=== PATIENT | female | born 1940 | race Caucasian/White ===

== ENCOUNTER 2022-08-19 10:13 | Emergency (ER) | payer BC ==
[~2022-08-19] VITALS: Ht 167.6 cm; Wt 65.8 kg
--- NOTE | 2022-08-19 10:38 | NUR ---
PT MELISSA FROM [facility]. PMD SENT THE PATIENT FOR ABNORMAL HGB 7.6. PT C/O BUTTOCKS PAIN FROM BONE MARROW BIOPSY 2 DAYS AGO. PT IS TRANSFERRED TO BED AND CONNECTED TO MONITOR, VITAL SIGNS WNL. AOX4.
--- NOTE | 2022-08-19 10:46 | NUR ---
AT BEDSIDE FOR EVAL
--- NOTE | 2022-08-19 10:48 | NUR ---
IV ACCESS ESTABLISHED, 20G LEFT AC. BLOOD DRAWN AND SENT TO LAB.
[2022-08-19 11:01] LABS: CALCIUM, SERUM 8.8 mg/dL (8.5-10.1); CARBON DIOXIDE 28 mmol/L (21-32); CHLORIDE 98 mmol/L (98-107); CREATININE 3.9 mg/dL (0.6-1.3); GLUCOSE 87 mg/dL (74-106); POTASSIUM 3.7 mmol/L (3.5-5.1); SODIUM SERUM 137 mmol/L (136-145); UREA NITROGEN, BLOOD 34 mg/dL (7-18)
--- NOTE | 2022-08-19 11:03 | NUR ---
MOVE SHEET SUBMITTED.
[2022-08-19 11:08] LABS: ALANINE AMINOTRANSFERASE 15 U/L (12-78); ALBUMIN 2.6 g/dL (3.4-5.0); ALKALINE PHOSPHATASE 298 U/L (46-116); ASPARTATE AMINOTRANSFERASE 27 U/L (15-37); BILIRUBIN,DIRECT 0.3 mg/dL (0.0-0.2); BILIRUBIN,TOTAL 0.7 mg/dL (0.2-1.0); TOTAL PROTEIN, SERUM 6.7 g/dL (6.4-8.2)
[2022-08-19 11:29] LABS: BASOPHILS # (AUTO) 0.1 K/uL (0.0-0.2); BASOPHILS % (AUTO) 1.8 % (0.0-2.0); EOSINOPHILS % (AUTO) 2.1 % (0.0-6.0); HEMATOCRIT 25 % (33-45); HEMOGLOBIN 8.5 g/dL (11.5-14.8); LYMPHOCYTES # (AUTO) 0.8 K/uL (0.8-4.8); LYMPHOCYTES % (AUTO) 15.2 % (20.0-44.0); MEAN CORPUSCULAR HGB CONC 34 g/dl (31.0-36.0); MEAN CORPUSCULAR VOLUME 93 fL (82-100); MONOCYTES # (AUTO) 0.5 K/uL (0.1-1.30); MONOCYTES % (AUTO) 8.5 % (2.0-12.0); NEUTROPHILS % (AUTO) 72.4 % (43.0-81.0); PLATELET COUNT (AUTO) 191 K/uL (150-450); RED BLOOD CELL COUNT(AUTO) 2.69 MIL/uL (4.0-5.2); WHITE BLOOD COUNT (AUTO) 5.6 K/uL (4.3-11.0)
[2022-08-19] MEDS ORDERED: BISA10SU11 RC (11:29)
[2022-08-19] MEDS ORDERED: ALLO100T PO (11:29)
[2022-08-19] MEDS ORDERED: HYDR-4303 PO (11:29)
[2022-08-19] MEDS ORDERED: PANT40TA2 PO (11:29)
[2022-08-19] MEDS ORDERED: METO25TA3 PO (11:29)
[2022-08-19] MEDS ORDERED: ASCO-352 PO (11:29)
[2022-08-19] MEDS ORDERED: SUCR1ORA15 PO (11:29)
[2022-08-19] MEDS ORDERED: FERR325T23 PO (11:29)
[2022-08-19] MEDS ORDERED: FOLI0.8T2 PO (11:29)
[2022-08-19] MEDS ORDERED: LEVO75TA7 PO (11:29)
[2022-08-19] MEDS ORDERED: AMIN30LI2 PO (11:29)
[2022-08-19] MEDS ORDERED: ACET200V4 INH (11:29)
[2022-08-19] MEDS ORDERED: ACET-868 PO (11:29)
[2022-08-19] MEDS ORDERED: IPRA3AMP23 IH (11:29)
[2022-08-19] MEDS ORDERED: HYDROCODONE/APAP 5/325MG TABLET ONE (11:33)
[2022-08-19] MEDS ORDERED: HYDROCODONE/APAP 5/325MG TABLET PO ONE (12:00)
--- NOTE | 2022-08-19 12:21 | NUR ---
CALLED [facility] FOR TRANSPORT ETA 1330 MINS PER LATESHA
[2022-08-19 13:23] VITALS: BP 118/66; TEMP 98
--- NOTE | 2022-08-19 13:24 | NUR ---
patient picked up by private ambulance going back to snf in no distress.
== END 2022-08-19 13:24 ==
LOC: ER 10:24
DX: I13.2 Hypertensive heart and chronic kidney disease with heart failure and with stage 5 chronic kidney disease, or end stage renal disease (principal); I50.9 Heart failure, unspecified; N18.6 End stage renal disease; D63.1 Anemia in chronic kidney disease; Z99.2 Dependence on renal dialysis; D61.818 Other pancytopenia; E78.5 Hyperlipidemia, unspecified; Z79.899 Other long term (current) drug therapy; Z88.0 Allergy status to penicillin; Z88.1 Allergy status to other antibiotic agents
CPT/HCPCS: 36415; 80048-TC; 80076-TC; 85025-TC